=== PATIENT | female | born 1945 | race Caucasian/White ===

== ENCOUNTER → 2017-06-13 | Outpatient (CLI) | payer MEDICARE, BC ==
--- NOTE | 2017-06-13 12:56 | Diagnostic Imaging Report ---
PROCEDURE: CT CHEST WITHOUT CONTRAST CT scan of the chest WITHOUT intravenous contrast, using standard protocol. TECHNIQUE: The chest was scanned utilizing a multidetector helical scanner from the apex to the level of the adrenal glands. No IV contrast was administered. Coronal and sagittal multiplanar reformations were obtained. COMPARISON: None. INDICATIONS: LEFT SUPRACLAVIULAR LYMPHADENOPATHY FINDINGS: Lines/tubes: None. Lungs and Airways: The images were obtained in the expiratory phase. Mosaic attenuation throughout the lungs, particularly in the dependent regions, likely related to air trapping. Pleural/parenchymal scarring in the apices. Interlobular septal thickening in the upper lobes is likely also due to scarring. No focal consolidation or suspicious masses. Pleura: The pleural spaces are clear. Heart and mediastinum: There is a mild diffuse enlargement of the thyroid gland.. No significant mediastinal, hilar or axillary lymphadenopathy is seen. The heart and pericardium are within normal limits. There are mild atherosclerotic calcifications of the coronary arteries. Small hiatal hernia is present. Soft tissues: There are bilateral breast implants with findings suspicious for intracapsular rupture. Abdomen: A small, calcified splenic artery aneurysm (series 2, image 117) measures 1.2 cm. A 1.5 cm hypodensity in the liver dome (series 2, image 84) is probably a cyst. A left renal cyst is partially visualized. Bones: Mild multilevel spondylosis of the thoracic spine IMPRESSION: No supraclavicular adenopathy is identified. No suspicious mediastinal or pulmonary parenchymal masses. Consider focused ultrasound to evaluate any palpable abnormality in the left supraclavicular region. Mosaic attenuation in the lungs, likely related to air trapping. Mild diffuse enlargement of the thyroid, nonspecific. Bilateral breast implants with findings suggestive of intracapsular rupture. Incidental note of a 1.2 cm calcified splenic artery aneurysm. Dictated by: Johnny Brasher M.D. on 06/13/2017 at 12:57 Electronically approved by: Johnny Brasher M.D. on 06/13/2017 at 12:57
== END ==
LOC: CT 10:40
PROVIDERS: ATTEND Internal Medicine
DX: R59.1 Generalized enlarged lymph nodes (principal)
CPT/HCPCS: 71250